=== PATIENT | female | born 1995 | race Caucasian/White ===

== ENCOUNTER 2022-03-26 14:37 | Emergency (ER) | payer OTHER ==
[2022-03-26] MEDS ORDERED: Sodium Chloride 0.9% 10 ML Syringe FLUSH PRN ×2 (14:43→15:32)
[2022-03-26] MEDS ORDERED: Sodium Chloride 0.9% 1,000 ML IV SCH (14:45)
[2022-03-26] MEDS ORDERED: Sodium Chloride 0.9% 1,000 ML IV ONE (14:46)
[2022-03-26] MEDS ORDERED: Sodium Chloride 0.9% 1,000 ML ONE (14:47)
[2022-03-26 15:25] LABS: ESTIMATED GFR > 60 mL/min (>60)
[2022-03-26] MEDS ORDERED: Iopamidol 755 Mg/ML 100 ML Bottle IVPUSH ONE (15:32)
[2022-03-26] MEDS ORDERED: Sodium Chloride 0.9% 100 ML IV SCH (15:45)
== END 2022-03-26 16:54 | disposition home or self-care (01) ==
LOC: JD.ED 14:37
DX: O99.893 Other specified diseases and conditions complicating puerperium (principal); R00.2 Palpitations; Z3A.30 30 weeks gestation of pregnancy; Z88.2 Allergy status to sulfonamides; Z79.899 Other long term (current) drug therapy
CPT/HCPCS: 36415; 71275; 80053; 81003; 84443; 84484; 85025; 85379; 93005; 99285; J3490; J7030; Q9967; 99283

== ENCOUNTER 2022-06-03 02:19 | Inpatient (IN) | payer OTHER ==
[2022-06-03] MEDS ORDERED: Ondansetron 4 MG/2 ML SDV IVPUSH PRN (07:04)
[2022-06-03] MEDS ORDERED: Sodium Chloride 0.9% 10 ML Syringe FLUSH PRN (07:04)
[2022-06-03] MEDS ORDERED: Nalbuphine HCl 10 MG/ 1ML Amp IVPUSH PRN (07:04)
[2022-06-03] MEDS ORDERED: Oxytocin/Lactated Ringers 10 UNIT/1,000 ML BAG IV SCH (07:15)
[2022-06-03] MEDS ORDERED: Ampicillin 2 GM in Sodium Chloride 0.9% 100 ML IV ONE (07:30)
[2022-06-03] MEDS: Lactated Ringers 1,000 ML IV SCH ×2 (08:11→15:49)
[2022-06-03] MEDS: Oxytocin/Lactated Ringers 10 UNIT/1,000 ML BAG IV SCH ×2 (08:13→22:39)
[2022-06-03] MEDS ORDERED: Sodium Chloride 0.9% 10 ML Syringe FLUSH SCH (09:00)
[2022-06-03] MEDS ORDERED: fentaNYL 100 MCG/2 ML SDV EPIDUR PRN (11:00)
[2022-06-03] MEDS ORDERED: diphenhydrAMINE 50 MG/ML SDV IVPUSH PRN (11:00)
[2022-06-03] MEDS ORDERED: ePHEDrine 50 MG/ML SDV IVPUSH PRN (11:00)
[2022-06-03] MEDS: Ampicillin 1 GM in Sodium Chloride 0.9% 100 ML IV SCH ×3 (12:03→19:54)
[2022-06-03] MEDS: Bupivacaine/fentaNYL/NS 100 ML Bag EPIDUR PRN (14:55)
[2022-06-04] MEDS ORDERED: Ropivacaine 0.2% PF 2 MG/ML 20 ML SDV ONE
[2022-06-04] MEDS: Bupivacaine/fentaNYL/NS 100 ML Bag EPIDUR PRN (00:27)
[2022-06-04] MEDS: Ampicillin 1 GM in Sodium Chloride 0.9% 100 ML IV SCH (00:35)
[2022-06-04] MEDS ORDERED: Metoclopramide 10 MG/2 ML SDV IVPUSH ONE (00:50)
[2022-06-04] MEDS ORDERED: Citric Acid/Sodium Citrate Solution 30 ML Cup PO ONE (00:50)
[2022-06-04] MEDS ORDERED: Azithromycin 500 MG in Sodium Chloride 0.9% 250 ML IV ONE (00:50)
[2022-06-04] MEDS ORDERED: ceFAZolin 2 GM Vial ONE (01:15)
[2022-06-04] MEDS ORDERED: Methylergonovine 0.2 MG/1 ML Amp ONE (01:42)
[2022-06-04] MEDS ORDERED: Oxytocin 10 Units/1 ML SDV ONE (01:56)
[2022-06-04] MEDS ORDERED: Lidocaine 2% with EPINEPHrine 1:200,000 20 ML SDV ONE ×2 (01:56)
[2022-06-04] MEDS ORDERED: Phenylephrine 1% 10 MG/ML SDV ONE (01:57)
[2022-06-04] MEDS ORDERED: Ondansetron 4 MG/2 ML SDV ONE (01:57)
[2022-06-04] MEDS ORDERED: ePHEDrine 50 MG/ML SDV ONE (01:57)
[2022-06-04] MEDS ORDERED: Ondansetron 4 MG/2 ML SDV IV PRN (03:47)
[2022-06-04] MEDS ORDERED: Acetaminophen/oxyCODONE 325-5 MG Tab PO PRN ×2 (03:47)
[2022-06-04] MEDS ORDERED: ePHEDrine 50 MG/ML SDV IVPUSH PRN (03:47)
[2022-06-04] MEDS ORDERED: diphenhydrAMINE 50 MG/ML SDV IVPUSH PRN (03:47)
[2022-06-04] MEDS ORDERED: Dextrose 5%-Lactated Ringers 1,000 ML IV SCH (03:47)
[2022-06-04] MEDS ORDERED: Naloxone 0.4 MG/ML SDV IVPUSH PRN (03:47)
[2022-06-04] MEDS: Hydroxychloroquine 200 MG Tab PO SCH ×3 (05:36→20:21)
[2022-06-04] MEDS: Ketorolac 30 MG/ML SDV IVPUSH SCH ×3 (07:39→20:21)
[2022-06-04] MEDS ORDERED: Simethicone 80 MG Tab.Chew PO PRN (22:41)
[2022-06-04] MEDS: Docusate Sodium 100 MG Cap PO PRN (23:27)
[2022-06-05] MEDS: Ibuprofen 600 MG Tab PO PRN ×2 (07:33→16:40)
[2022-06-05] MEDS: Hydroxychloroquine 200 MG Tab PO SCH ×2 (18:17→20:50)
[2022-06-05] MEDS: Docusate Sodium 100 MG Cap PO PRN (20:50)
[2022-06-06] MEDS: Ibuprofen 600 MG Tab PO PRN ×2 (04:00→10:46)
[2022-06-06] MEDS: Docusate Sodium 100 MG Cap PO PRN (10:45)
[2022-06-06] MEDS: Hydroxychloroquine 200 MG Tab PO SCH (10:46)
== END 2022-06-06 13:30 | disposition home or self-care (01) | DRG 807 ==
LOC: JD.OB 02:19 → OBSVTOIN 06-04 02:19
PROVIDERS: ADMIT Obstetrics & Gynecology; ATTEND Obstetrics & Gynecology
PROC: 10D07Z6 Extraction of Products of Conception, Vacuum, Via Natural or Artificial Opening (ICD-10-PCS; principal; 2022-06-04)
PROC: 3E0R3BZ Introduction of Anesthetic Agent into Spinal Canal, Percutaneous Approach (ICD-10-PCS; 2022-06-04)
DX: O48.0 Post-term pregnancy (principal); Z37.0 Single live birth; Z3A.40 40 weeks gestation of pregnancy; Z88.2 Allergy status to sulfonamides; O99.824 Streptococcus B carrier state complicating childbirth; O09.813 Supervision of pregnancy resulting from assisted reproductive technology, third trimester; O62.2 Other uterine inertia; P12.81 Caput succedaneum
CPT/HCPCS: 01968; 36415; 51701; 51702; 59025; 85027; 86592; 86850; 86900; 86901; 99100; A9270-GY; J0290; J0456; J0690; J1885; J2210; J2370; J2405; J2590; J2765; J3010; J7050; J7120; J7121